=== PATIENT | male | born 1980 | race Caucasian/White ===

== ENCOUNTER → 2017-01-14 | Outpatient (CLI) | payer BC ==
[~2017-01-14] MED LIST: AMPH20TA2 PO; BUPR150T9 PO; CLON0.5T3 PO; DESV100T PO; FAMO20TA13 PO; NFPRILOC40 PO; THYR120T2 PO
--- NOTE | 2017-01-14 16:07 | Diagnostic Imaging Report ---
WRIST, RIGHT, 3 VIEWS OR MORE COMPARISON: None available. INDICATION: Right wrist pain after falling down stairs. TECHNIQUE: PA, supinated oblique, pronated oblique and lateral views of the wrist. FINDINGS: No fracture or traumatic malalignment. No radiopaque foreign body. Joint spaces are well-maintained. IMPRESSION: 1. No acute fracture or malalignment. Dictated by: Dictated on workstation # [id number]
== END ==
LOC: RAD 13:06
PROVIDERS: ATTEND Family Medicine
DX: M25.531 Pain in right wrist (principal)
CPT/HCPCS: 73110